=== PATIENT | female | born 1985 | race Native Hawaiian/Other Pacific Islander ===

== ENCOUNTER 2017-09-05 15:26 | Emergency (ER) | payer OTHER ==
[2017-09-05 15:29] VITALS: BP 137/74; PULSE 101; RESP 20; TEMP 98.2; O2SAT 98
[2017-09-05] MEDS ORDERED: RESP: ALBUTEROL 2.5 MG/IPRATROPIUM 0.5 MG NEB (SCH) INH ONE (17:15)
--- NOTE | 2017-09-05 17:20 | PD ---
HPI Chief Complaint: Respiratory Symptoms Time Seen by Provider: 17:01 Travel History International Travel<30 days: No Contact w/Intl Traveler<30days: No Traveled to known affect area: No History of Present Illness HPI 32-year-old female complains of wheezing and shortness of breath. Patient has history of asthma. Patient has been using Ventolin inhaler. Patient also was given prescription for Pulmicort that she has not started using. Patient states that she is 24 weeks . Patient states that the fetus is active. Patient states that she has occasional lower abdominal cramping. Patient denies any uterine congestion. Patient denies any vaginal discharge or bleeding. Patient denies any cough congestion fever chills. PFSH Past Medical History ?: Social History Alcohol Use: No Tobacco Use: No Substance Use: No Allergies-Medications (Allergen,Severity, Reaction): Coded Allergies: No Known Allergies (Unverified , 09/05/17) Review of Systems General / Constitutional: No: Fever Eyes: No: Visual changes HENT: No: Headaches Cardiovascular: No: Chest Pain or Discomfort Respiratory: Positive: Shortness of Breath, Wheezing Gastrointestinal: No: Abdominal Pain Genitourinary: No: Dysuria Musculoskeletal: No: Pain Skin: No Rash Neurologic: No: Weakness Psychiatric: No: Depression Endocrine: No: Polydipsia Hematologic/Lymphatic: No: Easy Bruising Physical Exam Narrative GENERAL: Well-nourished, well-developed patient. SKIN: Focused skin assessment warm/dry. HEAD: Normocephalic. EYES: No scleral icterus. No injection or drainage. NECK: Supple, trachea midline. No JVD or lymphadenopathy. CARDIOVASCULAR: Regular rate and rhythm without murmurs, gallops, or rubs. RESPIRATORY: Breath sounds equal bilaterally. No accessory muscle use. Mild expiratory wheezes bilaterally. No rhonchi. GASTROINTESTINAL: Abdomen soft, non-tender, nondistended. MUSCULOSKELETAL: No cyanosis, or edema. BACK: Nontender without obvious deformity. No CVA tenderness. Data Data Last Documented VS Vital Signs Date Time Temp Pulse Resp B/P (MAP) Pulse Ox O2 Delivery O2 Flow Rate FiO2 09/05/17 15:29 98.2 101 20 137/74 (95) 98 Orders Orders Albuterol-Ipratropium Neb (Duoneb Neb) (09/05/17 17:15) Resp Mdi/Instruction (09/05/17 17:09) MDM Medical Decision Making Medical Screen Exam Complete: Yes Emergency Medical Condition: Yes Differential Diagnosis Differential diagnosis including acute exacerbation asthma, bronchitis, pneumonia. Narrative Course 32-year-old female with wheezing and shortness of breath. History of asthma. Albuterol with Atrovent treatment x1. Patient also was given a spacer for her inhaler. Diagnosis Primary Impression: Acute asthma exacerbation Qualified Codes: J45.41 - Moderate persistent asthma with (acute) exacerbation Patient Instructions: General Instructions Additional Instructions: Continue with albuterol treatment as needed. Use Pulmicort as directed. Follow -up with personal physician. Return if increasing shortness of breath wheezing fever. Med/Other Pt SpecificInfo: No Change to Meds Disposition: 01 DISCHARGE HOME Condition: Stable Sandeep Santillan MD Sep 05, 2017 17:20
[2017-09-05] MEDS ORDERED: SERT-132 PO (17:21)
[2017-09-05] MEDS ORDERED: SUDO60TA2 PO (17:21)
[2017-09-05] MEDS ORDERED: ZOFR4TAB3 SL (17:21)
[2017-09-05] MEDS ORDERED: VENTAER INH (17:21)
[2017-09-05] MEDS ORDERED: PROM25TA10 PO (17:21)
[2017-09-05] MEDS ORDERED: TYLE325T PO (17:21)
[2017-09-05] MEDS ORDERED: LORA-520 (17:21)
[2017-09-05] MEDS ORDERED: LORA-650 PO (17:21)
== END 2017-09-05 18:57 | disposition home or self-care (01) ==
LOC: NEPD 15:26
DX: O99.512 Diseases of the respiratory system complicating pregnancy, second trimester (principal); J45.901 Unspecified asthma with (acute) exacerbation; Z3A.24 24 weeks gestation of pregnancy
CPT/HCPCS: 94664; 99283